=== PATIENT | male | born 1975 | race Two or more races ===

== ENCOUNTER 2022-02-01 10:20 | Outpatient (CLI) | payer MEDICARE, OTHER | END 2022-02-01 23:59 | disposition home or self-care (01) | LOC: WOU 10:20 | PROVIDERS: ATTEND Podiatrist Foot & Ankle Surgery | DX: E11.610 Type 2 diabetes mellitus with diabetic neuropathic arthropathy (principal); E11.42 Type 2 diabetes mellitus with diabetic polyneuropathy; Z79.82 Long term (current) use of aspirin; Z79.02 Long term (current) use of antithrombotics/antiplatelets; R60.0 Localized edema; Z86.31 Personal history of diabetic foot ulcer | CPT/HCPCS: G0463 ==

== ENCOUNTER 2022-02-18 11:15 | Outpatient (CLI) | payer MEDICARE, OTHER | END 2022-02-18 23:59 | disposition home or self-care (01) | LOC: WOU 11:15 | PROVIDERS: ATTEND Podiatrist Foot & Ankle Surgery | DX: E11.610 Type 2 diabetes mellitus with diabetic neuropathic arthropathy (principal); E11.42 Type 2 diabetes mellitus with diabetic polyneuropathy; R60.0 Localized edema; M79.672 Pain in left foot; M79.671 Pain in right foot; Z79.82 Long term (current) use of aspirin; Z79.02 Long term (current) use of antithrombotics/antiplatelets | CPT/HCPCS: G0463 ==

== ENCOUNTER 2022-03-01 11:18 | Outpatient (CLI) | payer MEDICARE, OTHER | END 2022-03-01 23:59 | disposition home or self-care (01) | LOC: MSC 11:18 | PROVIDERS: ATTEND Anesthesiology | DX: E11.610 Type 2 diabetes mellitus with diabetic neuropathic arthropathy (principal); E11.40 Type 2 diabetes mellitus with diabetic neuropathy, unspecified; Z79.4 Long term (current) use of insulin; N18.6 End stage renal disease; Z99.2 Dependence on renal dialysis; I25.10 Atherosclerotic heart disease of native coronary artery without angina pectoris; Z95.5 Presence of coronary angioplasty implant and graft; Z79.899 Other long term (current) drug therapy ==

== ENCOUNTER 2022-04-19 10:25 | Outpatient (CLI) | payer MEDICARE, OTHER | END 2022-04-19 23:59 | disposition home or self-care (01) | LOC: WOU 10:25 | PROVIDERS: ATTEND Podiatrist Foot & Ankle Surgery | DX: E11.610 Type 2 diabetes mellitus with diabetic neuropathic arthropathy (principal); E11.42 Type 2 diabetes mellitus with diabetic polyneuropathy; R60.0 Localized edema; M79.605 Pain in left leg; M79.672 Pain in left foot; M79.671 Pain in right foot; Z79.82 Long term (current) use of aspirin; Z79.02 Long term (current) use of antithrombotics/antiplatelets | CPT/HCPCS: 73600; 73620; G0463 ==

== ENCOUNTER 2022-04-26 11:30 | Outpatient (CLI) | payer MEDICARE, OTHER | END 2022-04-26 23:59 | disposition home or self-care (01) | LOC: MSC 11:30 | PROVIDERS: ATTEND Anesthesiology | DX: E11.610 Type 2 diabetes mellitus with diabetic neuropathic arthropathy (principal); E11.40 Type 2 diabetes mellitus with diabetic neuropathy, unspecified; Z79.4 Long term (current) use of insulin; E11.22 Type 2 diabetes mellitus with diabetic chronic kidney disease; N18.6 End stage renal disease; Z99.2 Dependence on renal dialysis; I25.10 Atherosclerotic heart disease of native coronary artery without angina pectoris; Z95.5 Presence of coronary angioplasty implant and graft; Z79.01 Long term (current) use of anticoagulants; Z79.899 Other long term (current) drug therapy ==

== ENCOUNTER 2022-05-03 10:55 | Outpatient (CLI) | payer MEDICARE, OTHER | END 2022-05-03 23:59 | disposition home or self-care (01) | LOC: WOU 10:55 | PROVIDERS: ATTEND Podiatrist Foot & Ankle Surgery | DX: E11.610 Type 2 diabetes mellitus with diabetic neuropathic arthropathy (principal); R60.0 Localized edema; Z86.31 Personal history of diabetic foot ulcer; M79.605 Pain in left leg; Z79.02 Long term (current) use of antithrombotics/antiplatelets; Z79.899 Other long term (current) drug therapy; Z98.84 Bariatric surgery status; Z87.448 Personal history of other diseases of urinary system; E11.42 Type 2 diabetes mellitus with diabetic polyneuropathy | CPT/HCPCS: G0463 ==

== ENCOUNTER → 2022-05-20 | Outpatient (CLI) | payer MEDICARE, OTHER | END | disposition home or self-care (01) | LOC: RAD 10:25 | PROVIDERS: ATTEND Podiatrist Foot & Ankle Surgery | DX: M12.872 Other specific arthropathies, not elsewhere classified, left ankle and foot (principal); M21.42 Flat foot [pes planus] (acquired), left foot; E11.610 Type 2 diabetes mellitus with diabetic neuropathic arthropathy; M79.89 Other specified soft tissue disorders; M25.572 Pain in left ankle and joints of left foot; Z98.890 Other specified postprocedural states | CPT/HCPCS: 73600-TC; 73630-TC ==

== ENCOUNTER → 2022-05-20 | Outpatient (CLI) | payer MEDICARE, OTHER | END | disposition home or self-care (01) | LOC: WOU 11:30 | PROVIDERS: ATTEND Podiatrist Foot & Ankle Surgery | DX: E11.610 Type 2 diabetes mellitus with diabetic neuropathic arthropathy (principal); E11.42 Type 2 diabetes mellitus with diabetic polyneuropathy; R60.0 Localized edema; M79.672 Pain in left foot; M79.671 Pain in right foot; Z79.02 Long term (current) use of antithrombotics/antiplatelets; Z79.82 Long term (current) use of aspirin | CPT/HCPCS: G0463 ==

== ENCOUNTER → 2022-05-24 | Outpatient (CLI) | payer MEDICARE, OTHER | END | disposition home or self-care (01) | LOC: MSC 11:30 | PROVIDERS: ATTEND Anesthesiology | DX: E11.610 Type 2 diabetes mellitus with diabetic neuropathic arthropathy (principal); E11.40 Type 2 diabetes mellitus with diabetic neuropathy, unspecified; Z79.4 Long term (current) use of insulin; Z79.891 Long term (current) use of opiate analgesic; I25.10 Atherosclerotic heart disease of native coronary artery without angina pectoris; Z79.899 Other long term (current) drug therapy ==

== ENCOUNTER 2022-06-17 10:31 | Outpatient (CLI) | payer MEDICARE, OTHER | END 2022-06-17 23:59 | disposition home or self-care (01) | LOC: LAB 10:31 | PROVIDERS: ATTEND Podiatrist Foot & Ankle Surgery | DX: M79.89 Other specified soft tissue disorders (principal); E11.610 Type 2 diabetes mellitus with diabetic neuropathic arthropathy; R60.0 Localized edema; M21.962 Unspecified acquired deformity of left lower leg | CPT/HCPCS: 73600-TC ==

== ENCOUNTER 2022-06-17 11:05 | Outpatient (CLI) | payer MEDICARE, OTHER | END 2022-06-17 23:59 | disposition home or self-care (01) | LOC: WOU 11:05 | PROVIDERS: ATTEND Podiatrist Foot & Ankle Surgery | DX: E11.610 Type 2 diabetes mellitus with diabetic neuropathic arthropathy (principal); E11.42 Type 2 diabetes mellitus with diabetic polyneuropathy; M79.672 Pain in left foot; M79.671 Pain in right foot; M79.605 Pain in left leg; R60.0 Localized edema; Z86.31 Personal history of diabetic foot ulcer; Z79.82 Long term (current) use of aspirin; Z79.02 Long term (current) use of antithrombotics/antiplatelets | CPT/HCPCS: G0463 ==

== ENCOUNTER 2022-06-28 11:00 | Outpatient (CLI) | payer MEDICARE, OTHER | END 2022-06-28 23:59 | disposition home or self-care (01) | LOC: MSC 11:00 | PROVIDERS: ATTEND Anesthesiology | DX: E11.610 Type 2 diabetes mellitus with diabetic neuropathic arthropathy (principal); E11.40 Type 2 diabetes mellitus with diabetic neuropathy, unspecified; Z79.4 Long term (current) use of insulin; I25.10 Atherosclerotic heart disease of native coronary artery without angina pectoris; Z79.891 Long term (current) use of opiate analgesic; Z79.899 Other long term (current) drug therapy ==

== ENCOUNTER 2022-07-01 11:00 | Outpatient (CLI) | payer MEDICARE, OTHER ==
[2022-07-01] MEDS ORDERED: MUPIROCIN 2% CREAM 15 GM TUBE TP ONE (11:49)
== END 2022-07-01 23:59 | disposition home or self-care (01) ==
LOC: WOU 11:00
PROVIDERS: ATTEND Podiatrist Foot & Ankle Surgery
DX: E11.622 Type 2 diabetes mellitus with other skin ulcer (principal); L97.322 Non-pressure chronic ulcer of left ankle with fat layer exposed; E11.610 Type 2 diabetes mellitus with diabetic neuropathic arthropathy; E11.42 Type 2 diabetes mellitus with diabetic polyneuropathy; M79.605 Pain in left leg; M79.672 Pain in left foot; M79.671 Pain in right foot; R60.0 Localized edema; Z79.82 Long term (current) use of aspirin; Z79.02 Long term (current) use of antithrombotics/antiplatelets
CPT/HCPCS: 11042

== ENCOUNTER 2022-07-12 11:05 | Outpatient (CLI) | payer MEDICARE, OTHER | END 2022-07-12 23:59 | disposition home or self-care (01) | LOC: WOU 11:05 | PROVIDERS: ATTEND Podiatrist Foot & Ankle Surgery | DX: E11.622 Type 2 diabetes mellitus with other skin ulcer (principal); L97.322 Non-pressure chronic ulcer of left ankle with fat layer exposed; E11.610 Type 2 diabetes mellitus with diabetic neuropathic arthropathy; E11.42 Type 2 diabetes mellitus with diabetic polyneuropathy; M79.672 Pain in left foot; M79.671 Pain in right foot; R60.0 Localized edema; M79.605 Pain in left leg; Z79.82 Long term (current) use of aspirin; Z79.02 Long term (current) use of antithrombotics/antiplatelets | CPT/HCPCS: 11042 ==

== ENCOUNTER 2022-07-22 10:50 | Outpatient (CLI) | payer MEDICARE, OTHER | END 2022-07-22 23:59 | disposition home or self-care (01) | LOC: RAD 10:50 | PROVIDERS: ATTEND Podiatrist Foot & Ankle Surgery | DX: M79.89 Other specified soft tissue disorders (principal); M21.42 Flat foot [pes planus] (acquired), left foot; M21.6X2 Other acquired deformities of left foot; M89.8X7 Other specified disorders of bone, ankle and foot; M25.872 Other specified joint disorders, left ankle and foot; E11.610 Type 2 diabetes mellitus with diabetic neuropathic arthropathy | CPT/HCPCS: 73610-TC; 73630-TC ==

== ENCOUNTER 2022-07-22 11:15 | Outpatient (CLI) | payer MEDICARE, OTHER ==
[2022-07-22] MEDS ORDERED: MUPIROCIN 2% CREAM 15 GM TUBE TP ONE (11:40)
== END 2022-07-22 23:59 | disposition home or self-care (01) ==
LOC: WOU 11:15
PROVIDERS: ATTEND Podiatrist Foot & Ankle Surgery
DX: E11.622 Type 2 diabetes mellitus with other skin ulcer (principal); L97.322 Non-pressure chronic ulcer of left ankle with fat layer exposed; E11.610 Type 2 diabetes mellitus with diabetic neuropathic arthropathy; E11.42 Type 2 diabetes mellitus with diabetic polyneuropathy; R60.0 Localized edema; M79.605 Pain in left leg; M79.672 Pain in left foot; M79.671 Pain in right foot; Z79.82 Long term (current) use of aspirin; Z79.02 Long term (current) use of antithrombotics/antiplatelets
CPT/HCPCS: G0463

== ENCOUNTER 2022-08-02 10:51 | Outpatient (CLI) | payer MEDICARE, OTHER | END 2022-08-02 23:59 | disposition home or self-care (01) | LOC: MSC 10:51 | PROVIDERS: ATTEND Anesthesiology | DX: E11.610 Type 2 diabetes mellitus with diabetic neuropathic arthropathy (principal); E11.40 Type 2 diabetes mellitus with diabetic neuropathy, unspecified; Z79.4 Long term (current) use of insulin; I25.10 Atherosclerotic heart disease of native coronary artery without angina pectoris; Z95.5 Presence of coronary angioplasty implant and graft; Z98.84 Bariatric surgery status; Z79.891 Long term (current) use of opiate analgesic; Z79.899 Other long term (current) drug therapy ==

== ENCOUNTER 2022-08-30 09:50 | Outpatient (CLI) | payer MEDICARE, OTHER ==
[2022-08-30 12:27] LABS: BASOPHILS % (AUTO) 0.5 % (0.0-2.0); EOSINOPHILS % (AUTO) 6.1 % (0.0-6.0); HEMATOCRIT 39 % (39-51); HEMOGLOBIN 12.5 g/dL (13.5-17.5); LYMPHOCYTES # (AUTO) 0.8 K/uL (0.8-4.8); LYMPHOCYTES % (AUTO) 21.2 % (20.0-44.0); MEAN CORPUSCULAR HGB CONC 32 g/dl (31.0-36.0); MEAN CORPUSCULAR VOLUME 89 fL (80-96); MONOCYTES # (AUTO) 0.5 K/uL (0.1-1.30); MONOCYTES % (AUTO) 12.5 % (2.0-12.0); NEUTROPHILS # (AUTO) 2.3 K/uL (1.8-8.9); NEUTROPHILS % (AUTO) 59.7 % (43.0-81.0); PLATELET COUNT (AUTO) 198 K/uL (150-450); RED BLOOD CELL COUNT(AUTO) 4.43 MIL/uL (4.5-6.0); WHITE BLOOD COUNT (AUTO) 3.8 K/uL (4.3-11.0)
[2022-08-30 12:35] LABS: CALCIUM, SERUM 8.1 mg/dL (8.5-10.1); POTASSIUM 4.5 mmol/L (3.5-5.1)
[2022-08-30 12:55] LABS: CREATININE 7.7 mg/dL (0.6-1.3)
[2022-08-30 13:23] LABS: C-REACTIVE PROTEIN 4.8 mg/dL (0.0-0.9)
== END 2022-08-30 23:59 | disposition home or self-care (01) ==
LOC: LAB 09:50
PROVIDERS: ATTEND Podiatrist Foot & Ankle Surgery
DX: M79.672 Pain in left foot (principal); M79.89 Other specified soft tissue disorders; Z86.31 Personal history of diabetic foot ulcer
CPT/HCPCS: 36415; 73610-TC; 80048-TC; 82040-TC; 85025-TC; 85652-TC; 86140-TC

== ENCOUNTER 2022-08-30 11:00 | Outpatient (CLI) | payer MEDICARE, OTHER | END 2022-08-30 23:59 | disposition home or self-care (01) | LOC: MSC 11:00 | PROVIDERS: ATTEND Anesthesiology | DX: E11.610 Type 2 diabetes mellitus with diabetic neuropathic arthropathy (principal); E11.40 Type 2 diabetes mellitus with diabetic neuropathy, unspecified; Z98.890 Other specified postprocedural states; Z79.891 Long term (current) use of opiate analgesic; I25.10 Atherosclerotic heart disease of native coronary artery without angina pectoris; Z95.5 Presence of coronary angioplasty implant and graft; Z98.84 Bariatric surgery status; Z99.2 Dependence on renal dialysis ==

== ENCOUNTER 2022-08-30 11:04 | Outpatient (CLI) | payer MEDICARE, OTHER | END 2022-08-30 23:59 | disposition home or self-care (01) | LOC: WOU 11:04 | PROVIDERS: ATTEND Podiatrist Foot & Ankle Surgery | DX: E11.610 Type 2 diabetes mellitus with diabetic neuropathic arthropathy (principal); E11.42 Type 2 diabetes mellitus with diabetic polyneuropathy; R60.0 Localized edema; M79.672 Pain in left foot; M79.671 Pain in right foot; M79.605 Pain in left leg; Z79.82 Long term (current) use of aspirin; Z79.02 Long term (current) use of antithrombotics/antiplatelets | CPT/HCPCS: G0463 ==

== ENCOUNTER 2022-09-27 11:15 | Outpatient (CLI) | payer MEDICARE, OTHER | END 2022-09-27 23:59 | disposition home or self-care (01) | LOC: WOU 11:15 | PROVIDERS: ATTEND Podiatrist Foot & Ankle Surgery | DX: E11.610 Type 2 diabetes mellitus with diabetic neuropathic arthropathy (principal); E11.42 Type 2 diabetes mellitus with diabetic polyneuropathy; I89.0 Lymphedema, not elsewhere classified; M79.605 Pain in left leg; M79.672 Pain in left foot; M79.671 Pain in right foot; R60.0 Localized edema; Z79.82 Long term (current) use of aspirin; Z79.02 Long term (current) use of antithrombotics/antiplatelets | CPT/HCPCS: G0463 ==

== ENCOUNTER 2022-10-04 11:41 | Outpatient (CLI) | payer MEDICARE, OTHER | END 2022-10-04 23:59 | disposition home or self-care (01) | LOC: MSC 11:41 | PROVIDERS: ATTEND Anesthesiology | DX: E11.610 Type 2 diabetes mellitus with diabetic neuropathic arthropathy (principal); Z98.890 Other specified postprocedural states; Z79.891 Long term (current) use of opiate analgesic; I25.10 Atherosclerotic heart disease of native coronary artery without angina pectoris; Z95.5 Presence of coronary angioplasty implant and graft; Z98.84 Bariatric surgery status; Z99.2 Dependence on renal dialysis ==

== ENCOUNTER 2022-11-01 11:19 | Outpatient (CLI) | payer MEDICARE, OTHER | END 2022-11-01 23:59 | disposition home or self-care (01) | LOC: MSC 11:19 | PROVIDERS: ATTEND Anesthesiology | DX: E11.610 Type 2 diabetes mellitus with diabetic neuropathic arthropathy (principal); E11.40 Type 2 diabetes mellitus with diabetic neuropathy, unspecified; Z98.890 Other specified postprocedural states; Z79.891 Long term (current) use of opiate analgesic; I25.10 Atherosclerotic heart disease of native coronary artery without angina pectoris; Z95.5 Presence of coronary angioplasty implant and graft; Z98.84 Bariatric surgery status; Z99.2 Dependence on renal dialysis ==

== ENCOUNTER 2022-11-01 11:22 | Outpatient (CLI) | payer MEDICARE, OTHER ==
[2022-11-01 13:02] LABS: BASOPHILS % (AUTO) 0.4 % (0.0-2.0); EOSINOPHILS % (AUTO) 6.2 % (0.0-6.0); HEMATOCRIT 28 % (39-51); HEMOGLOBIN 8.9 g/dL (13.5-17.5); LYMPHOCYTES # (AUTO) 0.8 K/uL (0.8-4.8); LYMPHOCYTES % (AUTO) 21.1 % (20.0-44.0); MEAN CORPUSCULAR HGB CONC 32 g/dl (31.0-36.0); MEAN CORPUSCULAR VOLUME 96 fL (80-96); MONOCYTES # (AUTO) 0.3 K/uL (0.1-1.30); MONOCYTES % (AUTO) 7.9 % (2.0-12.0); NEUTROPHILS # (AUTO) 2.4 K/uL (1.8-8.9); NEUTROPHILS % (AUTO) 64.4 % (43.0-81.0); PLATELET COUNT (AUTO) 156 K/uL (150-450); RED BLOOD CELL COUNT(AUTO) 2.92 MIL/uL (4.5-6.0); WHITE BLOOD COUNT (AUTO) 3.7 K/uL (4.3-11.0)
== END 2022-11-01 23:59 | disposition home or self-care (01) ==
LOC: LAB 11:22
PROVIDERS: ATTEND Podiatrist Foot & Ankle Surgery
DX: M14.679 Charcot's joint, unspecified ankle and foot (principal)
CPT/HCPCS: 36415; 85025-TC; 85652-TC; 86140-TC

== ENCOUNTER 2022-11-08 11:30 | Outpatient (CLI) | payer MEDICARE, OTHER | END 2022-11-08 23:59 | disposition home or self-care (01) | LOC: WOU 11:30 | PROVIDERS: ATTEND Podiatrist Foot & Ankle Surgery | DX: E11.610 Type 2 diabetes mellitus with diabetic neuropathic arthropathy (principal); E11.42 Type 2 diabetes mellitus with diabetic polyneuropathy; M79.672 Pain in left foot; M79.671 Pain in right foot; M79.605 Pain in left leg; I89.0 Lymphedema, not elsewhere classified; B35.1 Tinea unguium; Z79.82 Long term (current) use of aspirin; Z79.02 Long term (current) use of antithrombotics/antiplatelets; Z86.31 Personal history of diabetic foot ulcer | CPT/HCPCS: G0463 ==

== ENCOUNTER 2022-11-29 10:41 | Outpatient (CLI) | payer MEDICARE, OTHER | END 2022-11-29 23:59 | disposition home or self-care (01) | LOC: MSC 10:41 | PROVIDERS: ATTEND Anesthesiology | DX: E11.610 Type 2 diabetes mellitus with diabetic neuropathic arthropathy (principal); E11.40 Type 2 diabetes mellitus with diabetic neuropathy, unspecified; Z98.890 Other specified postprocedural states; Z79.891 Long term (current) use of opiate analgesic; I25.10 Atherosclerotic heart disease of native coronary artery without angina pectoris; Z95.5 Presence of coronary angioplasty implant and graft; Z98.84 Bariatric surgery status; Z99.2 Dependence on renal dialysis; Z76.82 Awaiting organ transplant status ==

== ENCOUNTER 2022-12-06 10:53 | Outpatient (CLI) | payer MEDICARE, OTHER ==
[2022-12-06] MEDS ORDERED: BACI/NEOM/POLY B OINT PKT 1 UDPKT PACKET ONE (11:02)
== END 2022-12-06 23:59 | disposition home or self-care (01) ==
LOC: WOU 10:53
PROVIDERS: ATTEND Podiatrist Foot & Ankle Surgery
DX: Z09 Encounter for follow-up examination after completed treatment for conditions other than malignant neoplasm (principal); E11.610 Type 2 diabetes mellitus with diabetic neuropathic arthropathy; E11.42 Type 2 diabetes mellitus with diabetic polyneuropathy; I89.0 Lymphedema, not elsewhere classified; B35.1 Tinea unguium; M79.672 Pain in left foot; M79.671 Pain in right foot; M79.605 Pain in left leg; Z79.82 Long term (current) use of aspirin; Z86.31 Personal history of diabetic foot ulcer; Z79.02 Long term (current) use of antithrombotics/antiplatelets
CPT/HCPCS: G0463

== ENCOUNTER 2022-12-27 11:00 | Outpatient (CLI) | payer MEDICARE, OTHER | END 2022-12-27 23:59 | disposition home or self-care (01) | LOC: MSC 11:00 | PROVIDERS: ATTEND Anesthesiology | DX: E11.610 Type 2 diabetes mellitus with diabetic neuropathic arthropathy (principal); E11.40 Type 2 diabetes mellitus with diabetic neuropathy, unspecified; Z98.890 Other specified postprocedural states; Z79.891 Long term (current) use of opiate analgesic; I25.10 Atherosclerotic heart disease of native coronary artery without angina pectoris; Z95.5 Presence of coronary angioplasty implant and graft; Z98.84 Bariatric surgery status | CPT/HCPCS: 73600 ×2; 73630 ×2; G0463 ==

== ENCOUNTER 2022-12-28 11:45 | Outpatient (CLI) | payer MEDICARE, OTHER ==
[2022-12-28] MEDS ORDERED: SILVER SULFADIAZINE CREAM 25 GM TUBE ONE (12:12)
== END 2022-12-28 23:59 | disposition home or self-care (01) ==
LOC: WOU 11:45
PROVIDERS: ATTEND Specialist
DX: L03.011 Cellulitis of right finger (principal); E11.610 Type 2 diabetes mellitus with diabetic neuropathic arthropathy; E11.42 Type 2 diabetes mellitus with diabetic polyneuropathy; R60.0 Localized edema; M79.672 Pain in left foot; M79.671 Pain in right foot; I89.0 Lymphedema, not elsewhere classified; B35.1 Tinea unguium; Z79.02 Long term (current) use of antithrombotics/antiplatelets; Z79.82 Long term (current) use of aspirin
CPT/HCPCS: G0463

== ENCOUNTER 2023-01-04 11:00 | Outpatient (CLI) | payer MEDICARE, OTHER | END 2023-01-04 23:59 | disposition home or self-care (01) | LOC: WOU 11:00 | PROVIDERS: ATTEND Specialist | DX: L03.011 Cellulitis of right finger (principal); E11.610 Type 2 diabetes mellitus with diabetic neuropathic arthropathy; E11.42 Type 2 diabetes mellitus with diabetic polyneuropathy; E11.22 Type 2 diabetes mellitus with diabetic chronic kidney disease; N18.6 End stage renal disease; Z99.2 Dependence on renal dialysis; I89.0 Lymphedema, not elsewhere classified; B35.1 Tinea unguium; M79.672 Pain in left foot; M79.671 Pain in right foot; Z79.02 Long term (current) use of antithrombotics/antiplatelets; Z79.82 Long term (current) use of aspirin | CPT/HCPCS: G0463 ==

== ENCOUNTER 2023-01-06 11:16 | Outpatient (CLI) | payer MEDICARE, OTHER | END 2023-01-06 23:59 | disposition home or self-care (01) | LOC: WOU 11:16 | PROVIDERS: ATTEND Podiatrist Foot & Ankle Surgery | DX: E11.610 Type 2 diabetes mellitus with diabetic neuropathic arthropathy (principal); E11.42 Type 2 diabetes mellitus with diabetic polyneuropathy; E11.22 Type 2 diabetes mellitus with diabetic chronic kidney disease; N18.6 End stage renal disease; Z99.2 Dependence on renal dialysis; I89.0 Lymphedema, not elsewhere classified; R60.0 Localized edema; B35.1 Tinea unguium; M79.672 Pain in left foot; M79.671 Pain in right foot; M79.605 Pain in left leg; Z79.82 Long term (current) use of aspirin; Z79.02 Long term (current) use of antithrombotics/antiplatelets | CPT/HCPCS: G0463 ==

== ENCOUNTER 2023-02-10 11:15 | Outpatient (CLI) | payer MEDICARE, OTHER | END 2023-02-10 23:59 | disposition home or self-care (01) | LOC: WOU 11:15 | PROVIDERS: ATTEND Podiatrist Foot & Ankle Surgery | DX: E11.610 Type 2 diabetes mellitus with diabetic neuropathic arthropathy (principal); E11.42 Type 2 diabetes mellitus with diabetic polyneuropathy; I89.0 Lymphedema, not elsewhere classified; R60.0 Localized edema; B35.1 Tinea unguium; M79.605 Pain in left leg; M79.604 Pain in right leg; Z79.02 Long term (current) use of antithrombotics/antiplatelets; Z79.82 Long term (current) use of aspirin | CPT/HCPCS: G0463 ==

== ENCOUNTER 2023-02-28 13:02 | Outpatient (CLI) | payer MEDICARE, OTHER | END 2023-02-28 23:59 | disposition home or self-care (01) | LOC: RAD 13:02 | PROVIDERS: ATTEND Podiatrist Foot & Ankle Surgery | DX: S92.331D Displaced fracture of third metatarsal bone, right foot, subsequent encounter for fracture with routine healing (principal); M25.562 Pain in left knee; M25.561 Pain in right knee; M20.022 Boutonniere deformity of left finger(s); I70.0 Atherosclerosis of aorta; M86.8X7 Other osteomyelitis, ankle and foot; M25.774 Osteophyte, right foot; M14.671 Charcot's joint, right ankle and foot; X58.XXXD Exposure to other specified factors, subsequent encounter; M25.572 Pain in left ankle and joints of left foot; M25.571 Pain in right ankle and joints of right foot | CPT/HCPCS: 36415; 73600-TC; 73630-TC; 85652-TC; 86140-TC ==

== ENCOUNTER 2023-05-16 11:22 | Outpatient (CLI) | payer MEDICARE, OTHER ==
[2023-05-16 12:14] LABS: BASOPHILS % (AUTO) 0.5 % (0.0-2.0); EOSINOPHILS # (AUTO) 0.1 K/uL (0.0-0.7); EOSINOPHILS % (AUTO) 3.7 % (0.0-6.0); HEMATOCRIT 24 % (39-51); HEMOGLOBIN 7.8 g/dL (13.5-17.5); LYMPHOCYTES # (AUTO) 0.9 K/uL (0.8-4.8); LYMPHOCYTES % (AUTO) 26.8 % (20.0-44.0); MEAN CORPUSCULAR HEMOGLOBIN 30 PG (26.0-33.0); MEAN CORPUSCULAR HGB CONC 32 g/dl (31.0-36.0); MEAN CORPUSCULAR VOLUME 91 fL (80-96); MONOCYTES # (AUTO) 0.3 K/uL (0.1-1.30); MONOCYTES % (AUTO) 7.4 % (2.0-12.0); NEUTROPHILS # (AUTO) 2.1 K/uL (1.8-8.9); NEUTROPHILS % (AUTO) 61.6 % (43.0-81.0); PLATELET COUNT (AUTO) 186 K/uL (150-450); RED BLOOD CELL COUNT(AUTO) 2.65 MIL/uL (4.5-6.0); RED CELL DISTRIBUTION WIDTH 15.2 % (11.5-15.0); WHITE BLOOD COUNT (AUTO) 3.5 K/uL (4.3-11.0)
[2023-05-16 12:40] LABS: ALBUMIN 2.6 g/dL (3.4-5.0); ALKALINE PHOSPHATASE 217 U/L (46-116); CALCIUM, SERUM 8.7 mg/dL (8.5-10.1); CARBON DIOXIDE 36 mmol/L (21-32); CHLORIDE 101 mmol/L (98-107); CREATININE 2.3 mg/dL (0.6-1.3); GLUCOSE 253 mg/dL (74-106); POTASSIUM 3.4 mmol/L (3.5-5.1); SODIUM SERUM 141 mmol/L (136-145); UREA NITROGEN, BLOOD 9 mg/dL (7-18)
[2023-05-16 12:58] LABS: C-REACTIVE PROTEIN < 0.2 mg/dL (0.0-0.9); T4 (THYROXINE) 6.6 ug/dL (4.7-13.3); THYROID STIMULATING HORMONE 1.887 uIU/mL (0.358-3.74)
[2023-05-16 13:20] LABS: EOSINOPHILS % (MANUAL) 7 % (0-4); LYMPHOCYTES % (MANUAL) 35 % (16-48); MONOCYTES % (MANUAL) 4 % (0-11.0); NEUTROPHILS % (MANUAL) 54 (42-76); PLATELET ESTIMATE ADEQUATE
[2023-05-16 13:32] LABS: ERYTHROCYTE SEDIMENTATION RATE 15 MM/HR (0-15)
== END 2023-05-16 23:59 | disposition home or self-care (01) ==
LOC: WOU 11:22
PROVIDERS: ATTEND Podiatrist Foot & Ankle Surgery
DX: E11.610 Type 2 diabetes mellitus with diabetic neuropathic arthropathy (principal); R60.0 Localized edema; Z86.31 Personal history of diabetic foot ulcer; E11.42 Type 2 diabetes mellitus with diabetic polyneuropathy; I89.0 Lymphedema, not elsewhere classified; Z79.4 Long term (current) use of insulin; Z79.899 Other long term (current) drug therapy; Z98.84 Bariatric surgery status; E11.22 Type 2 diabetes mellitus with diabetic chronic kidney disease; N18.6 End stage renal disease; Z99.2 Dependence on renal dialysis; M21.079 Valgus deformity, not elsewhere classified, unspecified ankle; M24.474 Recurrent dislocation, right foot
CPT/HCPCS: 73600 ×2; 82040; 84075; 85025; 80048; 83036; 85652; 36415; 84439; 84443; 86140; 82306; 73630; 85007; 84436; G0463

== ENCOUNTER 2023-05-16 11:28 | Outpatient (CLI) | payer MEDICARE, OTHER | END 2023-05-16 23:59 | disposition home or self-care (01) | LOC: MSC 11:28 | PROVIDERS: ATTEND Anesthesiology | DX: E11.40 Type 2 diabetes mellitus with diabetic neuropathy, unspecified (principal); E11.610 Type 2 diabetes mellitus with diabetic neuropathic arthropathy; Z79.891 Long term (current) use of opiate analgesic; I25.10 Atherosclerotic heart disease of native coronary artery without angina pectoris; Z79.02 Long term (current) use of antithrombotics/antiplatelets; Z76.82 Awaiting organ transplant status ==